=== PATIENT | female | born 1985 | race Hispanic/Latino ===

== ENCOUNTER 2020-09-24 18:37 | Observation (INO) | payer SELFPAY ==
[~2020-09-24] VITALS: Ht 157.5 cm; Wt 91.6 kg
[2020-09-24] MEDS ORDERED: ALBUTEROL SULFATE HFA 8GM INHALATION AEROSOL INH PRN (19:45)
[2020-09-24] MEDS ORDERED: ACETAMINOPHEN 325 MG TAB PO ONE (19:45)
[2020-09-24 20:13] LABS: STREPTOCOCCUS GRP A ANTIGEN NEGATIVE (NEGATIVE)
[2020-09-24 20:22] LABS: INFLUENZAE A&B ANTIGEN (RAPID) NEGATIVE (NEGATIVE)
[2020-09-24] MEDS ORDERED: SODIUM CHLORIDE 0.9% 1000ML 1,000 ML IV SCH (21:45)
[2020-09-24] MEDS ORDERED: CEFEPIME HCL 1 GM VIAL IV SCH (21:45)
[2020-09-24 21:56] LABS: BASOPHILS # (AUTO) 0.1 (0.0-0.1); BASOPHILS % 0.4 % (0.0-1.0); EOSINOPHILS # (AUTO) 0.1 (0.0-0.4); EOSINOPHILS % 0.4 % (0.0-6.0); HEMATOCRIT 44.3 % (34.2-44.1); HEMOGLOBIN 15.2 g/dL (12.0-16.0); LYMPHOCYTES # (AUTO) 2.4 (1.0-3.2); LYMPHOCYTES % 15.2 % (18.0-39.1); MEAN CORPUSCULAR HEMOGLOBIN 28.5 pg (28-32); MEAN CORPUSCULAR HGB CONC 34.3 g/dL (31-35); MEAN CORPUSCULAR VOLUME 83.1 fL (81-99); MONOCYTES # (AUTO) 0.8 (0.2-0.8); NEUTROPHILS # (AUTO) 12.4 (2.1-6.9); NEUTROPHILS % 78.5 % (38.7-80.0); PLATELET COUNT 196 x10e3/uL (140-360); RED BLOOD COUNT 5.33 x10e6/uL (3.6-5.1); RED CELL DISTRIBUTION WIDTH 12.4 % (11.7-14.4)
[2020-09-24 21:59] LABS: CLARITY,URINE SL CLOUDY (CLEAR); COLOR,URINE YELLOW (YELLOW); KETONES,URINE TRACE (NEGATIVE); LEUKOCYTE ESTERASE ,URINE NEGATIVE (NEGATIVE); NITRITE,URINE NEGATIVE (NEGATIVE); PROTEIN,URINE DIPSTICK NEGATIVE (NEGATIVE); URINE UROBILINOGEN 0.2 mg/dL (0.2 - 1)
[2020-09-24] MEDS ORDERED: DEXTROSE 5% IV SCH (22:00)
[2020-09-24] MEDS ORDERED: CEFEPIME HCL IV SCH (22:00)
[2020-09-24 22:12] LABS: BACTERIA,URINE FEW /HPF
[2020-09-24 22:13] LABS: EPITHELIAL CELLS,URINE MANY /LPF
[2020-09-24 22:15] LABS: ALANINE AMINOTRANSFERASE 84 IU/L (0-55); ALBUMIN/GLOBULIN RATIO 1.1 (0.8-2.0); ALKALINE PHOSPHATASE 112 IU/L (40-150); ANION GAP 15.9 mmol/L (8-16); BLOOD UREA NITROGEN 10 mg/dL (7-26); BUN/CREATININE RATIO 13 (6-25); CALCIUM 9.2 mg/dL (8.4-10.2); CARBON DIOXIDE 23 mmol/L (22-29); CHLORIDE 98 mmol/L (98-107); CREATINE KINASE 40 IU/L (29-168); CREATININE, SERUM 0.76 mg/dL (0.57-1.11); EST GLOMERULAR FILTRATION RATE > 60 ML/MIN (60-); GLUCOSE 290 mg/dL (74-118); POTASSIUM 3.9 mmol/L (3.5-5.1); SODIUM 133 mmol/L (136-145)
[2020-09-24] MEDS ORDERED: CEFEPIME HCL 1 GM VIAL ONE (22:15)
[2020-09-24] MEDS ORDERED: SODIUM CHLORIDE 0.9% 50ML 50 ML ONE ×2 (22:16→23:11)
[2020-09-24] MEDS ORDERED: IOPAMIDOL 370 MG/ML 200 ML INFUS..BTL INJ ONE (23:11)
[2020-09-25] MEDS ORDERED: CEFTRIAXONE SOD 1 GM/50 ML BAG IV SCH (00:45)
[2020-09-25] MEDS: SODIUM CHLORIDE 0.9% 1000ML 1,000 ML IV SCH ×4 (01:00→20:59)
[2020-09-25] MEDS: AZITHROMYCIN 500MG/SOD CHL 0.9% 250ML BAG IV SCH (01:30)
[2020-09-25] MEDS: ACETAMINOPHEN 325 MG TAB PO PRN ×2 (02:13→14:40)
[2020-09-25] MEDS: CEFTRIAXONE SOD 1 GM in SODIUM CHLORIDE 0.9% 50ML 50 ML IV SCH (06:49)
[2020-09-25 07:52] LABS: CREATINE KINASE MB 0.3 ng/mL (0-5.0)
[2020-09-25] MEDS ORDERED: HUMALOG100 UNIT/3 SQ (12:36)
[2020-09-25 14:28] VITALS: BP 134/70
[2020-09-25 14:34] VITALS: BP 121/77
[2020-09-25 15:43] VITALS: BP 103/67
[2020-09-25] MEDS ORDERED: INSULIN LISPRO 100 UNIT/1 ML 3ML VIAL SQ PRN (15:45)
[2020-09-25] MEDS ORDERED: DEXTROSE 50% SYRINGE 50 ML IV PRN (15:45)
[2020-09-25] MEDS: INSULIN LISPRO 100 UNIT/1 ML 3ML VIAL SQ SCH (17:00)
[2020-09-25 17:52] LABS: CREATINE KINASE MB 0.3 ng/mL (0-5.0)
[2020-09-25 20:17] VITALS: BP 120/84
[2020-09-25 21:00] VITALS: BP 120/84
[2020-09-26] MEDS: CEFTRIAXONE SOD 1 GM in SODIUM CHLORIDE 0.9% 50ML 50 ML IV SCH (00:02)
[2020-09-26] MEDS: AZITHROMYCIN 500MG/SOD CHL 0.9% 250ML BAG IV SCH (00:50)
[2020-09-26 04:31] VITALS: BP 99/60
[2020-09-26 07:30] VITALS: BP 109/68
[2020-09-26 07:50] VITALS: BP 109/68
[2020-09-26] MEDS: INSULIN LISPRO 100 UNIT/1 ML 3ML VIAL SQ SCH (08:25)
[2020-09-26] MEDS: SODIUM CHLORIDE 0.9% 1000ML 1,000 ML IV SCH (08:45)
[2020-09-26 11:00] VITALS: BP 113/89
== END 2020-09-26 13:02 | disposition home or self-care (01) ==
LOC: ER 19:15 → ERHOLD 09-25 00:40 → IMCU 09-25 14:26
PROVIDERS: ADMIT Internal Medicine; ATTEND Internal Medicine
DX: J18.0 Bronchopneumonia, unspecified organism (principal); E11.65 Type 2 diabetes mellitus with hyperglycemia; Z20.822 Contact with and (suspected) exposure to COVID-19; Z88.1 Allergy status to other antibiotic agents; E87.1 Hypo-osmolality and hyponatremia; E66.9 Obesity, unspecified; Z79.4 Long term (current) use of insulin; Z68.36 Body mass index [BMI] 36.0-36.9, adult
CPT/HCPCS: 36415 ×3; 71045; 71260; 74177; 80053; 81001; 81025; 82550 ×2; 82553 ×2; 82948 ×2; 83518; 83605; 84484 ×2; 85025; 87040; 87070; 87400; 93005; 96360; 96361; 96372 ×2; 99284; G0378 ×2; J0456 ×2; J0692; J0696 ×2; J7030 ×3; Q9967; U0002; 70450